=== PATIENT | female | born 1945 | race Caucasian/White ===

== ENCOUNTER 2018-06-19 09:30 | Outpatient (CLI) | payer MEDICARE, OTHER, SELFPAY ==
[2018-06-19] VITALS (8 sets, daily range): BP systolic 101–126; BP diastolic 46–87; PULSE 50–60; RESP 16–30; TEMP 36.8; O2SAT 92–97
--- NOTE | 2018-06-19 09:32 | DI.RAD.S_ITS ---
PROCEDURE: PAIN L/S TRANSFORAMINAL INJECT INDICATIONS: Right L4-5 transforaminal [place] FINDINGS: Fluoroscopic spot filming was performed to verify placement of spinal needles at the right L4-5 level(s), as seen on the films. Appropriate location(s) of the needle tip(s) was confirmed by injection of iodinated contrast. IMPRESSION: Intraoperative imaging for needle localization lower lumbar spine Dictated by: David Rondon M.D. on 06/20/2018 at 8:29 Approved by: David Rondon M.D. on 06/20/2018 at 8:30
--- NOTE | 2018-06-19 10:10 | P.PCN_ITS ---
Procedures Date/Time Date of procedure: 06/19/18 Time of procedure: 10:08 General Procedure description: PREOP DIAGNOSIS 1. FORMAINAL STENOSIS WITH LE SYMPTOMS POST OP DIAGNOSIS 1. FORMAINAL STENOSIS WITH LE SYMPTOMS PROCEDURES 1. FLUOROSCOPICALLY GUIDED CONTRAST CONTROLLED TRANSFORAMINAL EPIDURAL STEROID INJECTION - RIGHT L4/5 TFESI PHYSICIAN: Joao Lua DO Malena is referred by Dr. Mckeon for treatment of Foraminal Stenosis with Right LE Symptoms FINDINGS Foraminal Nerve Root Compression secondary to disc disease and facet hypertrophy DESCRIPTION OF PROCEDURE: Following denial of allergy and review of potential side effects and complications, including, but not necessarily limited to, infection, allergic reaction, local tissue breakdown, stroke, temporary or permanent nerve injury, paralysis, and possible , the patient indicated that the patient understood and agreed to proceed. An informed consent document was signed by the patient, witnessed by a nurse, and placed in the patient's chart. Additionally, other treatment options including medications, modalities, and physical therapy were reviewed with the patient. After review of previous anaesthesic history and IV conscious sedation the patient was deemed safe to proceed with todays procedure with IV conscious sedation as ASA class II designation. Safety time-out was performed to confirm patient ID, procedure to be performed and site of procedure. IV sedation was accomplished with a combination of 4mg of Versed was administered by the RN after DO order, titrated to patient comfort during the course of the procedure while the patient remained responsive to all verbal commands In the prone position following sterile prep and drape of the lumbar region, the Right L4/5 posterior neuroforamen was identified fluoroscopically. The skin was anesthetized via a 25-gauge 1.5-inch needle with 1% lidocaine solution. At this point, a 22-gauge 5-inch spinal needle was atraumatically introduced and advanced under fluoroscopic guidance through the posterior Right L4/5 neuroforamen to approximately the anterior aspect of the canal. Depth was confirmed on lateral view. Following negative aspiration, injection of approximately 1.5 cc of Isovue 200 under live fluoroscopy in the AP view confirmed excellent flow along the nerve root, into the epidural space without vascular or intrathecal uptake observed Radiological data, including multiple fluoroscopic views of the lumbosacral spine, reveal a spinal needle at the right L4/5 posterior neuroforamen. Subsequent views show flow of contrast material flowing superiorly and inferiorly along the nerve root confirming epidural flow. Subsequently, a test dose of 1.5 cc of 1% lidocaine solution was administered and patient was observed for two minutes for signs or symptoms of complications , including abdominal pain, shortness of breath, bilateral upper or lower extremity weakness, nausea and vomiting, prior to steroid injection. At this point, a total of 3 cc or 20 mg of dexamethasone and 80mg Depo Medrol was injected without incident. The procedure tolerated the procedure well without signs or symptoms of complications prior to transfer to the recovery area continued monitoring without incident.The patient was then transferred to the recovery area where they were observed for an appropriate time after the injection. The patient reported a VAS score of 7 prior to the procedure and a post- procedure VAS of 0. Total Fluoroscopy Time: 20.9 seconds Total Conscious Sedation Time: 24min POST OP INSTRUCTIONS The patient was provided a Pain Log to continue to record their response to the target-specific procedure prior to follow-up visit with their referring physician. Additionally, specific post-injection care instructions and a contact number to our office were provided if concerns arise regarding possible complications associated with the procedure are suspected. Joao Lua DO Complications: none
[2018-06-19] MEDS: IOPAMIDOL 15 ML VIAL 3 ML INJ (10:35)
[2018-06-19] MEDS: BUPIVACAINE 0.25% (PF) VIAL 2 ML INJ (10:35)
[2018-06-19] MEDS: methylPREDNISolone acetate 80 MG/ML VIAL INJ (10:35)
[2018-06-19] MEDS: MIDAZOLAM 5 MG/5 ML VIAL IV (10:35)
[2018-06-19] MEDS: DEXAMETHASONE 10 MG/ML VIAL 20 MG INJ (10:35)
--- NOTE | 2018-06-20 18:00 | PC.NURSE ---
Called and left message about her wellbeing after her injection yesterday. Let her know to call the office with any questions or concerns.
== END 2018-06-19 11:37 | disposition home or self-care (01) ==
LOC: RAD 09:31
PROVIDERS: Family Provider Internal Medicine; PCP Internal Medicine; Visit Provider Physical Medicine & Rehabilitation
DX: M48.061 Spinal stenosis, lumbar region without neurogenic claudication (principal); M51.16 Intervertebral disc disorders with radiculopathy, lumbar region; M99.83 Other biomechanical lesions of lumbar region
CPT/HCPCS: 64483; 99152; J1040; J1100; J2250

== ENCOUNTER 2018-07-09 13:23 | Emergency (ER) | payer MEDICARE, OTHER, SELFPAY ==
[2018-07-09 13:31] VITALS: BP 112/62; PULSE 61; RESP 18; TEMP 36.8; O2SAT 96
--- NOTE | 2018-07-09 13:34 | DI.RAD.S_ITS ---
PROCEDURE: XR HAND LT MIN 3V INDICATIONS: Left hand pain. TECHNIQUE: 3 views of the hand(s) acquired. COMPARISON: None. FINDINGS: Bones: No gross acute fractures or dislocations. Carpal bones are normally aligned. No suspicious bony lesions. Mild osteoarthritic changes throughout interphalangeal joints are seen. Soft tissues: No suspicious soft tissue calcifications. IMPRESSION: No gross acute left hand fracture or dislocation. Mild osteoarthritic changes throughout interphalangeal joints. Dictated by: Tima Giraldo M.D. on 07/09/2018 at 16:51 Approved by: Tima Giraldo M.D. on 07/09/2018 at 16:52
== END 2018-07-09 15:19 | disposition left against medical advice (07) ==
LOC: ED 13:49
PROVIDERS: Emergency Provider Nurse Practitioner Family; PCP Internal Medicine
DX: S69.92XA Unspecified injury of left wrist, hand and finger(s), initial encounter (principal); W18.30XA Fall on same level, unspecified, initial encounter
CPT/HCPCS: 73130; 99213; 99281; 99282

== ENCOUNTER → 2018-08-21 12:10 | Outpatient (CLI) | payer MEDICARE, OTHER, SELFPAY ==
[2018-08-21 13:02] LABS: Add Manual Diff / Slide Review NO; Basophils Percent Auto 1.1 % (0-2); Eosinophils Percent Auto 4.6 % (2-4); Hematocrit 43.8 % (36-46); Hemoglobin 15.2 g/dL (12.0-16.0); Lymphocytes Percent Auto 28.1 % (25-40); Mean Corpuscular HGB Conc 34.6 % (30-36); Mean Corpuscular Hemoglobin 31.8 PG (26-34); Mean Corpuscular Volume 91.9 fL (80-100); Monocytes Percent Auto 11.9 % (3-14); Neutrophils Absolute Auto 3900 /uL (3000-5900); Neutrophils Percent Auto 54.3 % (50-75); Platelet Count 313 X10^3/uL (150-400); Red Blood Cell Count 4.77 X10^6/uL (4.0-5.2); Red Cell Distribution Width 14.2 % (11.6-14.8); White Blood Cell Count 7.2 X10^3/uL (4.5-11.0)
[2018-08-21 13:37] LABS: Alanine Aminotransferase 28 IU/L (9-52); Albumin 4.3 g/dL (3.5-5.0); Albumin Globulin Ratio 1.5 (1.0-2.8); Alkaline Phosphatase 93 U/L (38-126); Aspartate Aminotransferase 24 IU/L (14-36); Bilirubin Total 0.8 mg/dL (0.2-1.3); Blood Urea Nitrogen 16 mg/dL (7-17); Carbon Dioxide 26 mmol/L (22-32); Chloride 106 mmol/L (98-107); Cholesterol 190 mg/dL (140-199); Estimated Glomerular Filt Rate > 60.0 mL/min (>60); Globulin 2.9 g/dL (1.7-4.1); Glucose 103 mg/dL (80-110); HDL Cholesterol 67 mg/dL (40-60); HEMOLYSIS < 15 (0-50); LDL Cholesterol Calculated 70 mg/dL (<100); Potassium 4.1 mmol/L (3.4-5.1); Sodium 143 mmol/L (137-145); Total Protein 7.2 g/dL (6.3-8.2); Triglycerides 264 mg/dL (35-150)
[2018-08-21 14:07] LABS: Thyroid Stimulating Hormone 1.34 uIU/mL (0.47-4.68)
== END ==
PROVIDERS: PCP Internal Medicine; Visit Provider Internal Medicine
DX: J44.1 Chronic obstructive pulmonary disease with (acute) exacerbation (principal); F41.9 Anxiety disorder, unspecified
CPT/HCPCS: 36415; 80053; 80061; 84443; 85025

== ENCOUNTER → 2019-02-12 13:46 | Outpatient (CLI) | payer MEDICARE, SELFPAY ==
--- NOTE | 2019-02-12 | DI.NM.S_ITS ---
PROCEDURE: NM MILKA PERF SPECT REST & STR Rest and exercise myocardial perfusion SPECT with gated imaging and ejection fraction RADIOPHARMACEUTICAL: 25.0 mCi Tc-99m sestamibi IV at rest and 26.2 mCi Tc-99m sestamibi IV at peak exercise. A two day-protocol was performed. INDICATIONS: SHORTNESS OF BREATH TECHNIQUE: Radiopharmaceutical was injected at peak stress test, and also at rest. SPECT images were obtained. SPECT myocardial perfusion images were displayed in short axis, horizontal long axis, and vertical long axis views. Gated images were reviewed using Vidit software. COMPARISON: None. CARDIAC STRESS: Lexiscan 0.4mg IV was used as a stress test. Hemodynamic data: There is normal blood pressure and heart rate response to stress. Symptoms: Patient denied chest pain during the stress test. EKG: Resting ECG shows sinus bradycardia without ST-T changes. No diagnostic EKG changes of ischemia; no ectopy. FINDINGS: Raw data: There is good myocardial labeling by radiotracer. No significant motion artifacts. Egbi-ok-dgmsk ratio is 0.29 (normal is less than 0.38 for sestamibi tracer, and less than 0.50 for thallium tracer). Left ventricle function: Gated images demonstrate normal left ventricle wall thickening. No segmental wall motion abnormality. No transient ischemic dilation; TID is 0.82 (normal less than 1.3). The left ventricle resting end-diastolic volume is 89 mL. Left ventricle stress ejection fraction is 83%; normal values are above 45%. Myocardial perfusion: Very mild fixed apical defect that resolves with prone imaging, suggesting attenuation artifact. IMPRESSION: Low risk, probably normal pharmaceutical nuclear stress test. 1) Probably normal perfusion images. Very mild fixed apical defect that resolves with prone imaging, suggesting attenuation artifact. 2) Normal left ventricular size, wall motion, and systolic function (post stress EF of 83%). 3) No ECG changes with lexiscan. 4) No angina during the study. 5) Compared to the nuclear stress test done 06/24/2013, no significant change. Dictated by: Demetra Mustafa MD on 02/13/2019 at 12:52 Approved by: Demetra Mustafa MD on 02/13/2019 at 12:56
--- NOTE | 2019-02-12 15:05 | PM.TREADMILL ---
Cardiac Stress Test Report Referral & Results Date Patient Seen: 02/12/19 Requesting provider: Missy Bone Indication: Shortness of breath Rest ECG: Unremarkable Procedure Note: After both written and verbal informed consent the patient had an IV started by the diagnostic imaging RN and then was hooked up to the treadmill monitoring system. The patient was placed on the treadmill at 1 mile an hour with no elevation and was then injected with the Zarina scan material. The Cardiolite was then immediately administered. The patient spent an additional 2-3 minutes on the treadmill before being returned to the [facility] in the supine position. The patient had a normal response to all infused materials. Impression: Please see perfusion imaging report for details regarding possible ischemia Please note: Actual ECG tracings can be found in the PACS system.
== END ==
LOC: RAD 13:48
PROVIDERS: PCP Internal Medicine; Visit Provider Physician Assistant
DX: R06.02 Shortness of breath (principal)
CPT/HCPCS: 78452; 93016; 93017; 93018; A9502; J2785

== ENCOUNTER → 2019-04-29 12:30 | Outpatient (CLI) | payer MEDICARE, SELFPAY ==
--- NOTE | 2019-04-29 | DI.MG.S_ITS ---
BILATERAL DIGITAL SCREENING MAMMOGRAM 3D/2D WITH CAD: 04/29/2019 CLINICAL: Routine screening. Baseline exam. Comparison studies: 12/06/2010 and 02/05/2008. There are scattered fibroglandular elements in both breasts. Current study was also evaluated with a Computer Aided Detection (CAD) system. No significant masses, calcifications, or other findings are seen in either breast. IMPRESSION: NEGATIVE There is no mammographic evidence of malignancy. A 1 year screening mammogram is recommended. This exam was interpreted at Station ID: [id number]. NOTE: For mammograms, a report in lay terms will be sent to the patient. Approximately 15% of breast malignancies will not be visualized mammographically. In the management of a palpable breast mass, a negative mammogram must not discourage biopsy of a clinically suspicious lesion. Electronically Signed By: Cirilo Oseguera M.D. aty/:04/29/2019 14:46:34 letter sent: Normal Exam ACR BI-RADS Category 1: Negative [id number]
== END ==
PROVIDERS: PCP Internal Medicine; Visit Provider Internal Medicine
DX: Z12.31 Encounter for screening mammogram for malignant neoplasm of breast (principal); M81.0 Age-related osteoporosis without current pathological fracture; Z78.0 Asymptomatic menopausal state; F17.200 Nicotine dependence, unspecified, uncomplicated
CPT/HCPCS: 77063; 77067; 77080

== ENCOUNTER → 2019-05-27 14:02 | Outpatient (CLI) | payer MEDICARE, SELFPAY ==
--- NOTE | 2019-05-27 | DI.US.S_ITS ---
PROCEDURE: US PERIPH VENOUS LOW EXTREM RT INDICATIONS: PAIN IN RIGHT LEG TECHNIQUE: Real-time imaging, as well as color and pulse Doppler interrogation, were performed of the lower extremity deep veins from the inguinal ligament to the popliteal fossa. COMPARISON: None. FINDINGS: The common femoral, femoral and popliteal veins are normally compressible, and free of intraluminal thrombus. Color and pulse Doppler demonstrate normal phasic intraluminal flow. There is normal augmentation response to distal compression maneuver. Superficial thrombophlebitis within the lower thigh. IMPRESSION: 1. No deep venous thrombosis identified within the right lower extremity. 2. Superficial thrombophlebitis within the lower thigh. Dictated by: David WAYNE Interpreted: Cristobal Hauser MD on 05/27/2019 at 16:05 Approved by: Cristobal Hauser M.D. on 05/27/2019 at 17:17
== END ==
LOC: US 14:02
PROVIDERS: PCP Internal Medicine; Visit Provider Internal Medicine
DX: M79.604 Pain in right leg (principal); I80.01 Phlebitis and thrombophlebitis of superficial vessels of right lower extremity
CPT/HCPCS: 93971

== ENCOUNTER → 2020-05-07 15:21 | Outpatient (CLI) | payer MEDICARE, MEDICAID, SELFPAY ==
[2020-05-07 16:24] LABS: Add Manual Diff / Slide Review NO; Basophils Absolute Auto 100 /uL (0-100); Basophils Percent Auto 0.4 % (0-2); Eosinophils Absolute Auto 0 /uL (0-450); Hematocrit 42.8 % (36-46); Hemoglobin 14.5 g/dL (12.0-16.0); Lymphocytes Absolute Auto 1800 /uL (1100-4500); Lymphocytes Percent Auto 12.5 % (25-40); Mean Corpuscular HGB Conc 33.9 % (30-36); Mean Corpuscular Hemoglobin 32.8 PG (26-34); Mean Corpuscular Volume 96.5 fL (80-100); Monocytes Absolute Auto 600 /uL (0-900); Monocytes Percent Auto 4.4 % (3-14); Neutrophils Absolute Auto 11700 /uL (1500-7000); Neutrophils Percent Auto 82.7 % (50-75); Platelet Count 325 X10^3/uL (150-400); Red Blood Cell Count 4.44 X10^6/uL (4.0-5.2); Red Cell Distribution Width 14.5 % (11.6-14.8); White Blood Cell Count 14.1 X10^3/uL (4.5-11.0)
[2020-05-07 16:30] LABS: Alanine Aminotransferase 45 IU/L (<35); Albumin 4.5 g/dL (3.5-5.0); Albumin Globulin Ratio 1.3 (1.0-2.8); Alkaline Phosphatase 87 U/L (38-126); Aspartate Aminotransferase 41 IU/L (14-36); BUN Creatinine Ratio 27.4 (6-22); Bilirubin Total 0.7 mg/dL (0.2-1.3); Blood Urea Nitrogen 20 mg/dL (7-17); Calcium 9.9 mg/dL (8.4-10.2); Carbon Dioxide 24 mmol/L (22-32); Chloride 100 mmol/L (98-107); Estimated Glomerular Filt Rate > 60.0 mL/min (>60); Globulin 3.5 g/dL (1.7-4.1); Glucose 241 mg/dL (80-110); HEMOLYSIS 33 (0-50); Potassium 4.2 mmol/L (3.4-5.1); Sodium 135 mmol/L (137-145)
== END ==
PROVIDERS: PCP Internal Medicine; Referring Provider Internal Medicine; Visit Provider Internal Medicine
DX: I10 Essential (primary) hypertension (principal); J44.9 Chronic obstructive pulmonary disease, unspecified; A04.72 Enterocolitis due to Clostridium difficile, not specified as recurrent
CPT/HCPCS: 36415; 80053; 85025